=== PATIENT | female | born 1975 | race Caucasian/White ===

== ENCOUNTER → 2017-11-02 | Outpatient (CLI) | payer OTHER ==
[~2017-11-02] MED LIST: AMIT50TA PO; ATOR40TA78 PO; CETI10CA PO; CHOL200024 PO; DIPH25CA61 PO; ESOM40CA PO; ESTR2TAB PO; FURO-92 PO; GABA300C10 PO; IBUP-1222 PO; INSU100I18 SC; INSU100I32 INJ; LISI1TAB5 PO; METF100010 PO; NPH,100V5 SC; OXYC1TAB7 PO; PIOG15TA22 PO; POTA10TA31 PO; VITA1TAB19 PO; [UNRECOGNIZED DRUG - OTHER] PO; atorvastatin PO; lasix PO; magnesium PO; omeprazole PO
[2017-11-02 13:25] LABS: HEMATOCRIT 39.8 % (34.6-47.8); HEMOGLOBIN 12.5 g/dL (11.7-16.4); WHITE BLOOD COUNT 10.3 x10^3/uL (3.4-10)
[2017-11-02 13:35] LABS: BLOOD UREA NITROGEN 23 mg/dL (7-18)
[2017-11-02 14:03] LABS: ASPARTATE AMINO TRANSFERASE 5 U/L (15-37); FERRITIN 4.9 ng/mL (8-252); TOTAL IRON BINDING CAPACITY 394 mcg/dL (250-450); TRANSFERRIN 299 mg/dL (200-360)
== END | disposition home or self-care (01) ==
LOC: STAR 12:13
PROVIDERS: ATTEND Surgery
DX: Z01.818 Encounter for other preprocedural examination (principal); R94.31 Abnormal electrocardiogram [ECG] [EKG]; I10 Essential (primary) hypertension; E11.9 Type 2 diabetes mellitus without complications
CPT/HCPCS: 36415; 71020; 80053; 82306; 82607; 82728; 83540; 83550; 83970; 84134; 84425; 84466; 85025; 85610; 93005

== ENCOUNTER 2017-11-09 15:30 | Inpatient (IN) | payer OTHER ==
[~2017-11-09] VITALS: Ht 162.6 cm; Wt 116.0 kg
[2017-11-12] MEDS ORDERED: LACTATED RINGERS 1,000 ML IV SCH (09:52)
[2017-11-12] MEDS ORDERED: MIDAZOLAM 1 MG/ML, 2ML ONE (09:57)
[2017-11-12] MEDS ORDERED: FENTANYL PF 250 MCG/5ML ONE (09:57)
[2017-11-12] MEDS ORDERED: EPINEPHRINE 1 MG/ML, 1ML ONE (10:59)
[2017-11-12] MEDS ORDERED: BUPIVACAINE/PF 0.5% ONE (10:59)
[2017-11-12] MEDS ORDERED: CEFOTETAN 2 GM ONE (11:28)
[2017-11-12] MEDS ORDERED: ROCURONIUM 10 MG/ML,10ML ONE (12:01)
[2017-11-12] MEDS ORDERED: DEXAMETHASONE 4 MG/ML, 1ML ONE (12:01)
[2017-11-12] MEDS ORDERED: PROPOFOL 10 MG/ML, 20ML ONE (12:01)
[2017-11-12] MEDS ORDERED: SUCCINYLCHOLINE 20 MG/ML, 10ML ONE (12:01)
[2017-11-12] MEDS ORDERED: ONDANSETRON 2MG/ML, 2ML ONE ×3 (13:23→14:51)
[2017-11-12] MEDS ORDERED: KETOROLAC 30 MG/1 ML ONE (13:25)
[2017-11-12] MEDS ORDERED: HYDROmorphone 2 MG/ML, 1ML ONE (14:03)
[2017-11-12] MEDS: HYDROmorphone 1 MG/ML, 1ML IV PRN ×4 (14:05→14:35)
[2017-11-12] MEDS ORDERED: MIDAZOLAM 1 MG/ML, 2ML IV PRN (14:30)
[2017-11-12] MEDS ORDERED: MEPERIDINE/PF 25MG/0.5ML IVPush PRN (14:30)
[2017-11-12] MEDS ORDERED: hydrALAzine 20 MG/ML, 1ML IV PRN (14:30)
[2017-11-12] MEDS ORDERED: PROMETHAZINE 25 MG/ML, 1ML IV PRN (14:30)
[2017-11-12] MEDS ORDERED: ONDANSETRON 2MG/ML, 2ML IVPush PRN (14:30)
[2017-11-12] MEDS ORDERED: LABETALOL 5MG/ML, 20ML IV PRN (14:30)
[2017-11-12] MEDS ORDERED: FENTANYL PF 100 MCG/2ML IV PRN (14:30)
[2017-11-12] MEDS ORDERED: DIPHENHYDRAMINE 50 MG/ML, 1ML IV PRN (16:30)
[2017-11-12] MEDS ORDERED: ENALAPRILAT 1.25 MG/ML, 2ML IV PRN (16:30)
[2017-11-12] MEDS ORDERED: LORazepam 2 MG/ML, 1ML IV PRN (16:30)
[2017-11-12] MEDS ORDERED: DIPHENHYDRAMINE 25 MG CAPSULE PO PRN (16:30)
[2017-11-12] MEDS ORDERED: LACTATED RINGERS 500 ML IVBOLUS PRN (16:30)
[2017-11-12] MEDS ORDERED: PHENOL THROAT SPRAY BOTTLE MM PRN (16:30)
[2017-11-12] MEDS ORDERED: ONDANSETRON 2MG/ML, 2ML IV PRN (16:30)
[2017-11-12] MEDS ORDERED: [UNRECOGNIZED DRUG - OTHER] XX PRN (16:30)
[2017-11-12] MEDS: POTASSIUM CHLORIDE 20 MEQ in LACTATED RINGERS 1,000 ML IV SCH (17:50)
[2017-11-12] MEDS: ENOXAPARIN 30 MG/0.3 ML SQ SCH (17:51)
[2017-11-12] MEDS: GABAPENTIN 300 MG CAPSULE PO SCH (20:50)
[2017-11-12] MEDS ORDERED: AMITRIPTYLINE 50 MG TABLET PO SCH (21:00)
[2017-11-12] MEDS: INSULIN REGULAR, HUMAN 100 UNIT/ML 3ML VIAL LOW DOSE SS SQ-INSULIN SCH (21:09)
[2017-11-12 21:22] VITALS: BP 136/79
[2017-11-13 02:15] VITALS: BP 130/70
[2017-11-13] MEDS: POTASSIUM CHLORIDE 20 MEQ in LACTATED RINGERS 1,000 ML IV SCH ×2 (02:24→10:05)
[2017-11-13] MEDS: ENOXAPARIN 30 MG/0.3 ML SQ SCH ×2 (05:06→16:56)
[2017-11-13 05:34] LABS: HEMOGLOBIN 11.1 g/dL (11.7-16.4)
[2017-11-13 05:44] LABS: BLOOD UREA NITROGEN 19 mg/dL (7-18)
[2017-11-13] MEDS: INSULIN REGULAR, HUMAN 100 UNIT/ML 3ML VIAL LOW DOSE SS SQ-INSULIN SCH ×3 (07:00→16:00)
[2017-11-13 07:36] VITALS: BP 113/73
[2017-11-13] MEDS: GABAPENTIN 300 MG CAPSULE PO SCH ×2 (08:23→16:00)
[2017-11-13] MEDS: OXYcodone/APAP 5/325MG TABLET PO PRN ×2 (11:28→17:53)
[2017-11-13 15:30] VITALS: BP 117/71
[2017-11-13] MEDS ORDERED: PNEUMOCOCCAL 23 VACCINE IM-VACC ONE (17:30)
[2017-11-13 18:31] VITALS: BP 114/75
== END 2017-11-13 18:33 | disposition home or self-care (01) | DRG 621 ==
LOC: ORIP 11-12 09:40 → 4NOR 11-12 15:30
PROVIDERS: ADMIT Surgery; ATTEND Surgery
PROC: 0D1647A Bypass Stomach to Jejunum with Autologous Tissue Substitute, Percutaneous Endoscopic Approach (ICD-10-PCS; principal; 2017-11-12 11:30)
DX: E66.01 Morbid (severe) obesity due to excess calories (principal); K76.0 Fatty (change of) liver, not elsewhere classified; G62.9 Polyneuropathy, unspecified; E11.9 Type 2 diabetes mellitus without complications; I10 Essential (primary) hypertension; E78.00 Pure hypercholesterolemia, unspecified; G47.30 Sleep apnea, unspecified; K21.9 Gastro-esophageal reflux disease without esophagitis; I83.90 Asymptomatic varicose veins of unspecified lower extremity; G89.29 Other chronic pain; R06.83 Snoring; M54.9 Dorsalgia, unspecified; F41.9 Anxiety disorder, unspecified; F32.9 Major depressive disorder, single episode, unspecified; Z90.710 Acquired absence of both cervix and uterus; Z88.1 Allergy status to other antibiotic agents; Z88.8 Allergy status to other drugs, medicaments and biological substances; Z88.0 Allergy status to penicillin; Z84.89 Family history of other specified conditions; Z82.49 Family history of ischemic heart disease and other diseases of the circulatory system; Z83.3 Family history of diabetes mellitus; Z68.41 Body mass index [BMI] 40.0-44.9, adult; Z23 Encounter for immunization
CPT/HCPCS: 36415; 80048; 82040; 82947; 82962; 85025; 90732; J0171; J1100; J1170; J1650; J1815; J1885; J2250; J2270; J2405; J2704; J3010; J3480; J3490; J0330; J7120; S0074